=== PATIENT | male | born 1970 | race Two or more races ===

== ENCOUNTER 2019-02-14 05:11 | Emergency (ER) | payer SELFPAY ==
[~2019-02-14] VITALS: Ht 182.9 cm; Wt 81.6 kg
--- NOTE | 2019-02-14 06:00 | NUR ---
ANNEIENAbril FROM HOME. TO ER BED 10. AAOX4. ADMITS TO TAKING PSYLOCYBIN AND SASSAFRAS. PT WAS BROUGHT IN FOR REPORTED INCREASED ALOC AND TREMOR. PT WAS USUALLY GIVEN SUGAR BUT DID NOT WORK THIS TIME. FRIEND REPORTS THIS IS NOT THE FIRST TIME THIS HAPPENED. UPON ASSESSMENT NO TREMOR WERE NOTED. PT IS AAOX4. NO NEURO DEFICIT NOTED. AMBULATORY. AWAITING MD FOR EVAL.
[2019-02-14] MEDS ORDERED: IV NS 0.9% 1,000 ML BAG IV ONE (07:00)
[2019-02-14 07:07] LABS: BASOPHILS % (AUTO) 0.3 % (0.0-2.0); EOSINOPHILS % (AUTO) 0.2 % (0.0-6.0); HEMATOCRIT 49 % (39-51); HEMOGLOBIN 16.9 g/dL (13.5-17.5); LYMPHOCYTES # (AUTO) 1.5 /CMM (0.8-4.8); LYMPHOCYTES % (AUTO) 15.1 % (20.0-44.0); MEAN CORPUSCULAR HGB CONC 34 g/dl (31.0-36.0); MEAN CORPUSCULAR VOLUME 93 fL (80-96); MONOCYTES # (AUTO) 0.8 /CMM (0.1-1.30); MONOCYTES % (AUTO) 8.5 % (2.0-12.0); NEUTROPHILS # (AUTO) 7.6 /CMM (1.8-8.9); NEUTROPHILS % (AUTO) 75.9 % (43.0-81.0); PLATELET COUNT (AUTO) 335 /CMM (150-450); RED BLOOD CELL COUNT(AUTO) 5.31 MIL/uL (4.5-6.0)
[2019-02-14 07:44] LABS: ALBUMIN 4.4 g/dL (3.4-5.0); BILIRUBIN,DIRECT 0.1 mg/dL (0.0-0.2); BILIRUBIN,TOTAL 0.7 mg/dL (0.2-1.0); CALCIUM, SERUM 9.3 mg/dL (8.5-10.1); CREATININE 1.1 mg/dL (0.6-1.3); POTASSIUM 3.8 mmol/L (3.5-5.1); TOTAL PROTEIN, SERUM 8.1 g/dL (6.4-8.2)
--- NOTE | 2019-02-14 07:46 | NUR ---
PT UP AMB WITHA ASSISTANCE [facility]A SENT TO LAB
--- NOTE | 2019-02-14 08:23 | NUR ---
PT FEELING BETTER PT. VERBALIZED UNDERSTANDING OF AFTERCARE INSTRUCTIONS.IV removed. Catheter intact and site benign. Pressure and 4x4 applied to site. No bleeding noted.Patient discharged to home in stable condition. Written and verbal after care instructions given. Patient verbalizes understanding of instruction.
[2019-02-14 08:24] VITALS: BP 127/76
== END 2019-02-14 08:26 | disposition home or self-care (01) ==
LOC: ER 05:20
DX: R42 Dizziness and giddiness (principal); F16.10 Hallucinogen abuse, uncomplicated; I10 Essential (primary) hypertension; Z88.0 Allergy status to penicillin; Z60.2 Problems related to living alone
CPT/HCPCS: 36415; 80048; 80076; 82550; 82962; 85025; 93005; 96360; 99284; J7030